=== PATIENT | male | born 1975 | race Caucasian/White ===

== ENCOUNTER 2018-06-30 23:37 | Inpatient (IN) | payer OTHER ==
[~2018-06-30] VITALS: Ht 182.9 cm; Wt 188.7 kg
[2018-07-01] VITALS (11 sets, daily range): BP systolic 106–129; BP diastolic 53–63
[2018-07-01] MEDS ORDERED: ONDANSETRON HCL INJ 2MG/ML 2ML 2 MG/ML VIAL IV STA (00:13)
[2018-07-01] MEDS ORDERED: KETOROLAC TROMETHAMINE 30 MG/ML VIAL IV STA (00:13)
[2018-07-01] MEDS ORDERED: ACETAMINOPHEN 325 MG TAB PO ONE (00:30)
[2018-07-01] MEDS ORDERED: SODIUM CHLORIDE 0.9% 1000ML 1,000 ML IV ONE (00:30)
[2018-07-01 01:19] LABS: BASOPHILS # (AUTO) 0.1 (0.0-0.1); BASOPHILS % 0.3 % (0.0-1.0); HEMATOCRIT 41.7 % (38.2-49.6); HEMOGLOBIN 14.5 g/dL (14.0-18.0); LYMPHOCYTES # (AUTO) 3.4 (1.0-3.2); LYMPHOCYTES % 14.9 % (18.0-39.1); MEAN CORPUSCULAR HEMOGLOBIN 36.1 pg (28-32); MEAN CORPUSCULAR HGB CONC 34.8 g/dL (31-35); MEAN CORPUSCULAR VOLUME 103.7 fL (81-99); MONOCYTES # (AUTO) 2.5 (0.2-0.8); MONOCYTES % 11.1 % (4.4-11.3); NEUTROPHILS # (AUTO) 16.6 (2.1-6.9); NEUTROPHILS % 73.1 % (38.7-80.0); PLATELET COUNT 212 x10e3/uL (140-360); RED BLOOD COUNT 4.02 x10e6/uL (4.3-5.7); RED CELL DISTRIBUTION WIDTH 12.8 % (11.7-14.4)
[2018-07-01 01:36] LABS: ALANINE AMINOTRANSFERASE 23 IU/L (0-55); ALBUMIN 3.3 g/dL (3.5-5.0); ALBUMIN/GLOBULIN RATIO 0.9 (0.8-2.0); ALKALINE PHOSPHATASE 78 IU/L (40-150); AMYLASE 14 U/L (25-125); ANION GAP 14.9 mmol/L (8-16); BLOOD UREA NITROGEN 8 mg/dL (7-26); BUN/CREATININE RATIO 9 (6-25); CALCIUM 11.4 mg/dL (8.4-10.2); CARBON DIOXIDE 21 mmol/L (22-29); CHLORIDE 101 mmol/L (98-107); CREATININE, SERUM 0.93 mg/dL (0.72-1.25); EST GLOMERULAR FILTRATION RATE > 60 ML/MIN (60-); GLUCOSE 103 mg/dL (74-118); LIPASE 5 U/L (8-78); POTASSIUM 3.9 mmol/L (3.5-5.1); SODIUM 133 mmol/L (136-145)
--- NOTE | 2018-07-01 01:37 | Diagnostic Imaging Report ---
EXAM: CT ABDOMEN/PELVIS WO DATE: 07/01/2018 12:13 AM INDICATION: Left flank pain COMPARISON: None TECHNIQUE: The abdomen and pelvis were scanned using a multidetector helical scanner. Coronal and sagittal reformations were obtained. CT low dose techniques were utilized, as applicable. IV Contrast: 0 ml Isovue 300/370 FINDINGS: Lack of IV contrast and photon starvation related to body habitus decreases sensitivity in evaluating abdominal and pelvic organs. LOWER THORAX: No consolidations LIVER/BILIARY: No masses. No ductal dilatation. GALLBLADDER: Unremarkable SPLEEN: Unremarkable PANCREAS: Unremarkable ADRENALS: 3.3 cm right adrenal nodule has density less than 10 compatible with an adenoma. KIDNEYS: No stones. No hydronephrosis. Mild nonspecific perinephric stranding. GI TRACT: No wall thickening or evidence of obstruction. Normal appendix. VESSELS: Unremarkable PERITONEUM/RETROPERITONEUM: No free air or fluid LYMPH NODES: No lymphadenopathy REPRODUCTIVE ORGANS/BLADDER: Prominent prostate with surrounding inflammatory changes/edema about the prostate and bladder. SOFT TISSUES: Unremarkable BONES: No suspicious bone lesions. IMPRESSION: Findings which can be seen with prostatitis/cystitis in the proper clinical setting. No obstructive uropathy. Signed by: Dr Susana Garnett MD on 07/01/2018 1:33 AM
[2018-07-01 01:50] LABS: BILIRUBIN,URINE NEGATIVE (NEGATIVE); CLARITY,URINE HAZY (CLEAR); COLOR,URINE ORANGE (YELLOW); KETONES,URINE NEGATIVE (NEGATIVE); LEUKOCYTE ESTERASE ,URINE NEGATIVE (NEGATIVE); NITRITE,URINE NEGATIVE (NEGATIVE); PROTEIN,URINE DIPSTICK TRACE (NEGATIVE); URINE UROBILINOGEN 0.2 mg/dL (0.2 - 1)
[2018-07-01] MEDS ORDERED: CEFTRIAXONE SOD 1 GM/NS 50 ML 50 ML IV ONE (02:00)
[2018-07-01 02:21] LABS: BACTERIA,URINE FEW /HPF; EPITHELIAL CELLS,URINE FEW /LPF; MUCUS,URINE MODERATE (RARE); RBC,URINE 0-5 /HPF (0-5); WBC,URINE (MAN) 21-50 /HPF (0-5)
--- OUTSIDE RECORDS SUMMARY | 2018-07-01 02:44 | XMS REPORT ---
Author Author [facility] Address Unknown Phone Unavailable Care Team Providers Care Subgrade Roller Operator Name Role Phone Alonso WISEMAN Unavailable Unavailable Problems This patient has no known problems. Allergies, Adverse Reactions, Alerts This patient has no known allergies or adverse reactions. Medications This patient has no known medications. Results Test Description Test Time Test Comments Text Results Atomic Results Result Comments CT ABDOMEN/PELVIS WO 2018-07-01 01:25:00 [place] [id number] Patient Name: ZENIA GUILLORY MR #: [id number] : 1975 Age/Sex: 43/M Req #: [id number] Adm Physician: Ordered by: JOVANI WISEMAN MD Report #: [id number] Location: ER Room/Bed: Procedure: [id number] CT/CT ABDOMEN/PELVIS WO Exam Date: Exam Time: REPORT STATUS: Signed EXAM: CT ABDOMEN/PELVIS WO DATE: 07/01/2018 12:13 AM INDICATION: Left flank pain COMPARISON: None TECHNIQUE: The abdomen and pelvis were scanned using a multidetector helical scanner. Coronal and sagittal reformations were obtained. CT low dose techniques were utilized, as applicable. IV Contrast: 0 ml Isovue 300/370 FINDINGS: Lack of IV contrast and photon starvation related to body habitus decreases sensitivity in evaluating abdominal and pelvic organs. LOWER THORAX: No consolidations LIVER/BILIARY: No masses. No ductal dilatation. GALLBLADDER: Unremarkable SPLEEN: Unremarkable PANCREAS: Unremarkable ADRENALS: 3.3 cm right adrenal nodule has density less than 10 compatible with an adenoma. KIDNEYS: No stones. No hydronephrosis. Mild nonspecific perinephric stranding. GI TRACT: No wall thickening or evidence of obstruction. Normal appendix. VESSELS: Unremarkable PERITONEUM/RETROPERITONEUM: No free air or fluid LYMPH NODES: No lymphadenopathy REPRODUCTIVE ORGANS/BLADDER: Prominent prostate with surrounding inflammatory changes/edema about the prostate and bladder. SOFT TISSUES: Unremarkable BONES: No suspicious bone lesions. IMPRESSION: Findings which can be seen with prostatitis/cystitis in the proper clinical setting. No obstructive uropathy. Signed by: Dr Ely Garnett MD on 07/01/2018 1:33 AM Dictated By: ELY GARNETT MD 2 Transcribed By: EDOUARD on 07/01/18132 COPY TO: JOVANI WISEMAN MD
[2018-07-01] MEDS ORDERED: CEFTRIAXONE SOD 1 GM/NS 50 ML 50 ML IV SCH (02:45)
[2018-07-01] MEDS ORDERED: ONDANSETRON HCL INJ 2MG/ML 2ML 2 MG/ML VIAL IV PRN (02:45)
--- NOTE | 2018-07-01 03:15 | NUR ---
Received patient from ER. A&Ox2, respirations even & unlabored, no distress noted. Ambulatory and self transfer. IV 20g R AC SL, patent & no infiltration noted. Rates pain level 4/10 to abdomen & lower back.
[2018-07-01] MEDS: SODIUM CHLORIDE 0.9% 1000ML 1,000 ML IV SCH ×2 (03:56→14:00)
[2018-07-01] MEDS ORDERED: CRESTOR10 MG PO (04:41)
[2018-07-01] MEDS ORDERED: LOSARTAN POTASS25 MG PO (04:41)
[2018-07-01] MEDS ORDERED: COLCRYS0.6 MG PO (04:42)
[2018-07-01] MEDS ORDERED: ALLOPURINOL100 MG PO (04:42)
[2018-07-01] MEDS ORDERED: FOLIC ACID1 MG PO (04:43)
[2018-07-01] MEDS ORDERED: VITAMIN D1000 UNI1 PO (04:43)
[2018-07-01] MEDS ORDERED: OMEGA-31000 MG (04:44)
[2018-07-01] MEDS ORDERED: TIZANIDINE HCL4 M1 PO (04:45)
--- NOTE | 2018-07-01 06:48 | NUR ---
Consult call placed w/ Dr. Lopez
--- NOTE | 2018-07-01 06:50 | NUR ---
Dr. Lopez returned call, stated Dr. Cook will be in to see the patient
--- NOTE | 2018-07-01 07:05 | NUR ---
Received patient semi fowlers position, side rails up x2, call light within reach, mother at bedside. Resting with eyes closed. Arousable to verbal stimuli. Respirations even and unlabored. Will continue to monitor.
[2018-07-01] MEDS: DOXYCYCLINE HYCLATE TABLET 100 MG TAB PO SCH ×2 (10:53→20:45)
[2018-07-01] MEDS: LEVOFLOXACIN 750MG/D5W 150ML 150 ML IV SCH (10:53)
--- NOTE | 2018-07-01 14:54 | Consultation ---
DATE OF CONSULTATION: July 01, 2018 UROLOGY CONSULTATION CONSULTATION CALLED BY: Dr. Olivo. CHIEF UROLOGIC COMPLAINT AND REASON FOR CONSULTATION: Gross hematuria and prostatitis. HISTORY OF PRESENT ILLNESS: Mario Francois is a 43-year-old male admitted to the hospital with a 5-day history of gross hematuria, fevers, chills and prostatitis. He reports 5 days of gross hematuria painless, positive dysuria, positive frequency, positive urgency, nocturia 2 times per night. PAST MEDICAL HISTORY: Remarkable for obesity. MEDICATIONS: Please see MAR. ALLERGIES: ASPIRIN. SOCIAL HISTORY: No smoking or drinking. FAMILY HISTORY: Denied urologic stones or malignancies. REVIEW OF SYSTEMS: Noncontributory other than problems mentioned above for 12 organ systems. PHYSICAL EXAMINATION GENERAL: Obese male in no acute distress. VITALS: Currently, temperature 95.6, pulse 75, respirations 18, blood pressure 129/58. HEENT: Sclerae are anicteric. NECK: Supple. BACK: Without costovertebral angle tenderness bilaterally. ABDOMEN: Soft, nontender, nondistended. No palpable mass. No palpable hernias. No palpable groin lymphadenopathy. : Normal external genitalia. EXTREMITIES: Significant for edema. NEUROLOGIC: Moves extremities. PSYCH: Alert. Mood appropriate. SKIN: Intact. Normal color. PERTINENT LABORATORY DATA: Sodium 133, potassium 3.9, chloride 101, bicarb 21, BUN 8, creatinine 0.93, glucose 103. Hemoglobin 14, hematocrit 31, platelet count 212,000. White cell count 22,600. Urinalysis positive leuk, positive blood. IMPRESSION 1. Prostatitis. 2. Urinary tract infection. 3. Gross hematuria. 4. Obesity, morbid. PLAN 1. The patient has been begun on broad-spectrum antibiotics, agree with this. 2. Will perform imaging. 3. Electively, the patient will need a cystoscopy once the infection has resolved. Thank you for allowing me to participate in the care of your patient. We will be happy to follow along with you. Job#: [id number] cc:JAVID OLIVO MD
--- NOTE | 2018-07-01 15:13 | NUR ---
CASE MANAGEMENT INITIAL ASSESSMENT Grubber to bedside to discuss plan of care with patient/family. CM/SW role and care transitions discussed. Anticipated discharge plan discussed along with duration of care. CM discussed patients right to make decisions in care. CM/SW work hours given. Patient lives: PATIENT LIVES WITH MOTHER [place] [address] Admit/Transfer: ED POA/Emergency contact: MOTHER: PARISH GUILLORY- [phone] Current/Previous Home Health: NONE PCP/Follow-up Care: DR. LESTER GODFREY Current/Previous DME: NONE AT THIS TIME Other Services: NONE AT THIS TIME Employment Status: EMPLOYED Areas of Concerns: NONE Referral Needs: NONE AT THIS TIME Education Needs: NONE IMM/MOORE given and signed (if applicable): N/A Goal for discharge: DISCHARGE HOME INDEPENDENTLY WITH NO NEEDS CM left business card at the bedside with contact information. Name and number was also written on the patients whiteboard. Patient verbalized understanding of discussion. CM will follow-up with ongoing discharge and transition of care needs.
[2018-07-01] MEDS: ACETAMINOPHEN 325 MG TAB PO PRN ×2 (17:05→20:45)
--- NOTE | 2018-07-01 18:30 | NUR ---
Resting in bed. No s/s of acute distress noted. Report to be given to oncoming nurse.
[2018-07-02] VITALS (8 sets, daily range): BP systolic 103–164; BP diastolic 58–82
[2018-07-02] MEDS: ACETAMINOPHEN 325 MG TAB PO PRN ×3 (01:59→18:35)
[2018-07-02] MEDS: SODIUM CHLORIDE 0.9% 1000ML 1,000 ML IV SCH ×2 (02:03→13:51)
[2018-07-02 06:23] LABS: BASOPHILS % 0.3 % (0.0-1.0); EOSINOPHILS # (AUTO) 0.1 (0.0-0.4); EOSINOPHILS % 0.7 % (0.0-6.0); HEMATOCRIT 41.3 % (38.2-49.6); LYMPHOCYTES # (AUTO) 1.8 (1.0-3.2); LYMPHOCYTES % 15.6 % (18.0-39.1); MEAN CORPUSCULAR HEMOGLOBIN 35.6 pg (28-32); MEAN CORPUSCULAR HGB CONC 33.9 g/dL (31-35); MEAN CORPUSCULAR VOLUME 105.1 fL (81-99); MONOCYTES # (AUTO) 1.1 (0.2-0.8); MONOCYTES % 9.6 % (4.4-11.3); NEUTROPHILS # (AUTO) 8.5 (2.1-6.9); NEUTROPHILS % 73.4 % (38.7-80.0); PLATELET COUNT 186 x10e3/uL (140-360); RED BLOOD COUNT 3.93 x10e6/uL (4.3-5.7); RED CELL DISTRIBUTION WIDTH 12.7 % (11.7-14.4)
[2018-07-02 06:41] LABS: BLOOD UREA NITROGEN 9 mg/dL (7-26); BUN/CREATININE RATIO 10 (6-25); CALCIUM 11.7 mg/dL (8.4-10.2); CARBON DIOXIDE 21 mmol/L (22-29); CHLORIDE 107 mmol/L (98-107); EST GLOMERULAR FILTRATION RATE > 60 ML/MIN (60-); GLUCOSE 98 mg/dL (74-118); SODIUM 137 mmol/L (136-145)
--- NOTE | 2018-07-02 07:00 | NUR ---
SHIFT REPORT RECEIVED FROM NIGHT RN. PT DENIES NEEDS AT THIS TIME.
[2018-07-02] MEDS: ALLOPURINOL 100 MG TAB PO SCH (08:16)
[2018-07-02] MEDS: LEVOFLOXACIN 750MG/D5W 150ML 150 ML IV SCH (08:16)
[2018-07-02] MEDS: FOLIC ACID 1 MG TAB PO SCH (08:16)
[2018-07-02] MEDS: DOXYCYCLINE HYCLATE TABLET 100 MG TAB PO SCH ×2 (08:16→20:42)
[2018-07-02] MEDS ORDERED: FOLIC ACID 1 MG TAB PO SCH (09:00)
[2018-07-02] MEDS ORDERED: PROMETHAZINE 12.5MG/ NACL 0.9% 12.5 MG/50 ML BAG IV PRN (10:45)
[2018-07-02] MEDS ORDERED: IBUPROFEN 600 MG TAB PO PRN (10:45)
[2018-07-03] VITALS (7 sets, daily range): BP systolic 118–164; BP diastolic 67–85
[2018-07-03] MEDS: SODIUM CHLORIDE 0.9% 1000ML 1,000 ML IV SCH ×2 (04:48→16:24)
[2018-07-03] MEDS: ACETAMINOPHEN 325 MG TAB PO PRN (04:48)
[2018-07-03 06:31] LABS: BASOPHILS % 0.5 % (0.0-1.0); EOSINOPHILS # (AUTO) 0.1 (0.0-0.4); EOSINOPHILS % 1.3 % (0.0-6.0); HEMATOCRIT 38.1 % (38.2-49.6); LYMPHOCYTES # (AUTO) 1.5 (1.0-3.2); LYMPHOCYTES % 20.2 % (18.0-39.1); MEAN CORPUSCULAR HEMOGLOBIN 35.5 pg (28-32); MEAN CORPUSCULAR HGB CONC 34.1 g/dL (31-35); MEAN CORPUSCULAR VOLUME 104.1 fL (81-99); MONOCYTES # (AUTO) 1.1 (0.2-0.8); MONOCYTES % 14.3 % (4.4-11.3); NEUTROPHILS # (AUTO) 4.8 (2.1-6.9); NEUTROPHILS % 63.2 % (38.7-80.0); PLATELET COUNT 195 x10e3/uL (140-360); RED BLOOD COUNT 3.66 x10e6/uL (4.3-5.7); RED CELL DISTRIBUTION WIDTH 12.7 % (11.7-14.4)
[2018-07-03 06:50] LABS: ANION GAP 11.9 mmol/L (8-16); BLOOD UREA NITROGEN 6 mg/dL (7-26); BUN/CREATININE RATIO 8 (6-25); CALCIUM 11.6 mg/dL (8.4-10.2); CARBON DIOXIDE 21 mmol/L (22-29); CHLORIDE 108 mmol/L (98-107); CREATININE, SERUM 0.79 mg/dL (0.72-1.25); EST GLOMERULAR FILTRATION RATE > 60 ML/MIN (60-); GLUCOSE 108 mg/dL (74-118); POTASSIUM 3.9 mmol/L (3.5-5.1); SODIUM 137 mmol/L (136-145)
--- NOTE | 2018-07-03 07:00 | NUR ---
SHIFT REPORT RECEIVED FROM NIGHT RN. PT DENIES NEEDS AT THIS TIME.
[2018-07-03] MEDS: LEVOFLOXACIN 750MG/D5W 150ML 150 ML IV SCH (08:56)
[2018-07-03] MEDS: ALLOPURINOL 100 MG TAB PO SCH (08:56)
[2018-07-03] MEDS: FOLIC ACID 1 MG TAB PO SCH (08:56)
[2018-07-03] MEDS: DOXYCYCLINE HYCLATE TABLET 100 MG TAB PO SCH ×2 (08:56→20:58)
[2018-07-03] MEDS: LACTULOSE SYRUP 20 GM/30 ML UDC PO PRN ×2 (10:20→20:58)
--- NOTE | 2018-07-03 22:20 | NUR ---
RIGHT AC IV LEAKING. IV REMOVED WITH TIP INTACT. PRESSURE DRESSING APPLIED. NEW IV STARTED TO LEFT AC 20G X1 ATTEMPT.
[2018-07-04] VITALS (9 sets, daily range): BP systolic 120–150; BP diastolic 55–93
[2018-07-04] MEDS: SODIUM CHLORIDE 0.9% 1000ML 1,000 ML IV SCH ×2 (06:00→20:53)
[2018-07-04 06:22] LABS: BASOPHILS % 0.5 % (0.0-1.0); EOSINOPHILS # (AUTO) 0.3 (0.0-0.4); EOSINOPHILS % 3.9 % (0.0-6.0); HEMATOCRIT 39.2 % (38.2-49.6); HEMOGLOBIN 13.3 g/dL (14.0-18.0); LYMPHOCYTES # (AUTO) 2.8 (1.0-3.2); LYMPHOCYTES % 35.7 % (18.0-39.1); MEAN CORPUSCULAR HEMOGLOBIN 35.5 pg (28-32); MEAN CORPUSCULAR HGB CONC 33.9 g/dL (31-35); MEAN CORPUSCULAR VOLUME 104.5 fL (81-99); MONOCYTES # (AUTO) 1.3 (0.2-0.8); MONOCYTES % 16.7 % (4.4-11.3); NEUTROPHILS # (AUTO) 3.4 (2.1-6.9); NEUTROPHILS % 42.7 % (38.7-80.0); PLATELET COUNT 210 x10e3/uL (140-360); RED BLOOD COUNT 3.75 x10e6/uL (4.3-5.7); RED CELL DISTRIBUTION WIDTH 12.8 % (11.7-14.4)
[2018-07-04 06:59] LABS: BLOOD UREA NITROGEN 8 mg/dL (7-26); BUN/CREATININE RATIO 10 (6-25); CALCIUM 11.4 mg/dL (8.4-10.2); CARBON DIOXIDE 24 mmol/L (22-29); CHLORIDE 109 mmol/L (98-107); CREATININE, SERUM 0.77 mg/dL (0.72-1.25); EST GLOMERULAR FILTRATION RATE > 60 ML/MIN (60-); GLUCOSE 98 mg/dL (74-118); MAGNESIUM 1.9 MG/DL (1.3-2.1); SODIUM 140 mmol/L (136-145)
--- NOTE | 2018-07-04 07:00 | NUR ---
SHIFT REPORT RECEIVED FROM NIGHT RN. PT DENIES NEEDS AT THIS TIME.
[2018-07-04] MEDS: FOLIC ACID 1 MG TAB PO SCH (09:13)
[2018-07-04] MEDS: LEVOFLOXACIN 750MG/D5W 150ML 150 ML IV SCH (09:13)
[2018-07-04] MEDS: ALLOPURINOL 100 MG TAB PO SCH (09:14)
[2018-07-04] MEDS: DOXYCYCLINE HYCLATE TABLET 100 MG TAB PO SCH ×2 (09:14→20:53)
[2018-07-04] MEDS ORDERED: ENOXAPARIN SOD INJ 40 MG/0.4 ML SYR SC NR (09:30)
[2018-07-04] MEDS: LACTULOSE SYRUP 20 GM/30 ML UDC PO PRN (16:15)
[2018-07-04] MEDS ORDERED: DOXAZOSIN MESYLATE 2 MG TAB PO SCH (21:00)
[2018-07-04] MEDS: ACETAMINOPHEN 325 MG TAB PO PRN (22:43)
[2018-07-05 00:41] VITALS: BP 129/83
[2018-07-05 05:32] VITALS: BP 127/76
[2018-07-05 08:09] VITALS: BP 124/69
[2018-07-05] MEDS: SODIUM CHLORIDE 0.9% 1000ML 1,000 ML IV SCH (08:18)
[2018-07-05] MEDS ORDERED: DOXYCYCLINE HY100 MG PO (09:36)
[2018-07-05] MEDS ORDERED: LEVAQUIN500 MG PO (09:36)
[2018-07-05] MEDS ORDERED: CARDURA2 MG PO (09:36)
[2018-07-05] MEDS: ALLOPURINOL 100 MG TAB PO SCH (09:49)
[2018-07-05] MEDS: FOLIC ACID 1 MG TAB PO SCH (09:49)
[2018-07-05] MEDS: DOXYCYCLINE HYCLATE TABLET 100 MG TAB PO SCH (09:49)
[2018-07-05] MEDS: LEVOFLOXACIN 750MG/D5W 150ML 150 ML IV SCH (09:53)
[2018-07-05 10:14] VITALS: BP 124/69
[2018-07-05 12:11] VITALS: BP 118/55
--- NOTE | 2018-07-05 13:10 | NUR ---
CRUZITO SPOKE TO DR. OLIVO REGARDING PATIENT PLAN OF CARE. DR. OLIVO STATES PATIENT WILL NOT HAVE ANY NEEDS UPON DISCHARGE. SM SPOKE TO PATIENT AT BEDSIDE. PATIENT HAS NO QUESTIONS REGARDING DISCHARGE PLAN. PATIENT STATES HE HAS NO NEEDS AT THIS TIME. CM GAVE PATIENT CONTACT INFORMATION IF ANYTHING CHANGES.
--- NOTE | 2018-07-05 13:37 | NUR ---
Patient discharged with home prescriptions given for abx and contacts to f/u with urology, education information and side effects of medications explained to patient. IV line removed with cath tip in place and dressing applied
--- NOTE | 2018-07-05 13:47 | Discharge Summary ---
DISCHARGE DIAGNOSES 1. Prostatitis, improving. 2. Urinary tract infection. 3. Hypercalcemia. According to the patient, this is a known problem from before. 4. Morbid obesity. Mr. Francois is a 43-year-old gentleman, patient of Dr. Romy De La Torre, who has a past medical history significant for GERD, gout and hypertension, who presented to the hospital after he noted blood in the urine, and then later on began having fever, chills and nausea. He was having significant lower abdominal pain. Since the symptoms were not improving, he decided to show up in the emergency department. He was found to have an elevated white count of 22,000. A CT of the abdomen and pelvis was significant for signs of inflammation and prominent prostate with surrounding inflammatory changes, which were consistent with prostatitis and cystitis. He was admitted to the hospital. He was started on a combination of levofloxacin and doxycycline. Blood and urine cultures were requested. The blood cultures were negative. The urine culture unfortunately only showed contaminant. There was no growth of any significant pathogen. However, on the current combination of antibiotics his white count progressively improved, and he has now been afebrile for the last 48 hours. Consultation was requested with the urologist, Dr. Cook, who agreed with the course of treatment. Added doxazosin, and recommended outpatient endoscopy. He is being discharged home in stable condition. He was given prescriptions for doxazosin, doxycycline and levofloxacin. He is to follow up with urology and his PCP. JAVID OLIVO MD Job#: [id number] [place]
== END 2018-07-05 12:55 | disposition home or self-care (01) | DRG 872 ==
LOC: ER 23:37 → ERHOLD 07-01 02:40 → MED/SURG 07-01 03:19
PROVIDERS: ADMIT Internal Medicine; ATTEND Internal Medicine
DX: A41.9 Sepsis, unspecified organism (principal); N41.0 Acute prostatitis; Z68.43 Body mass index [BMI] 50.0-59.9, adult; E87.1 Hypo-osmolality and hyponatremia; N30.00 Acute cystitis without hematuria; I10 Essential (primary) hypertension; E83.52 Hypercalcemia; D64.9 Anemia, unspecified; E66.01 Morbid (severe) obesity due to excess calories; K21.9 Gastro-esophageal reflux disease without esophagitis
CPT/HCPCS: 36415; 74176; 80048; 80053; 81001; 82150; 83690; 83735; 83970; 84550; 85025; 87040; 87086; 96361; 99284; J0696; J1650; J1885; J2405; J7030